=== PATIENT | female | born 1975 ===

== ENCOUNTER 2021-08-04 01:13 | Emergency (ER) | payer BC ==
[2021-08-04] MEDS ORDERED: Sodium Chloride 0.9% 2.5 ML Syringe FLUSH PRN (02:20)
[2021-08-04] MEDS ORDERED: Ketorolac 30 MG/ML SDV IVPUSH ONE (02:20)
[2021-08-04] MEDS ORDERED: Metoclopramide 10 MG/2 ML SDV IVPUSH ONE (02:20)
[2021-08-04] MEDS ORDERED: Sodium Chloride 0.9% 1,000 ML IV ONE (02:20)
[2021-08-04] MEDS ORDERED: Dexamethasone 10 MG/ML SDV IVPUSH ONE (02:20)
[2021-08-04] MEDS ORDERED: Sodium Chloride 0.9% 10 ML Syringe FLUSH PRN (02:20)
[2021-08-04] MEDS ORDERED: diphenhydrAMINE 50 MG/ML SDV IVPUSH ONE (02:20)
[2021-08-04 03:17] LABS: BLOOD UREA NITROGEN,BUN 13 mg/dL (7.0-18.0); CARBON DIOXIDE,CO2 24.1 mmol/L (21.0-32.0); CHLORIDE,CL 97 mmol/L (98-107); GLUCOSE RANDOM 138 mg/dL (74-106); POTASSIUM,K 3.7 mmol/L (3.5-5.1); SODIUM,NA 133 mmol/L (136-145)
== END 2021-08-04 04:46 | disposition home or self-care (01) ==
LOC: MW.ED 01:13
DX: G43.909 Migraine, unspecified, not intractable, without status migrainosus (principal); Z88.1 Allergy status to other antibiotic agents; Z79.899 Other long term (current) drug therapy
CPT/HCPCS: 36415; 70450; 80053; 85025; 96374; 96375; 99284; J1100; J1200; J1885; J2765; J7030; J3490

== ENCOUNTER 2022-02-02 20:21 | Emergency (ER) | payer BC ==
[2022-02-02] MEDS ORDERED: Ketorolac 30 MG/ML SDV IM STA (20:51)
[2022-02-02] MEDS ORDERED: Cephalexin 500 MG Cap PO STA (20:51)
== END 2022-02-02 21:07 | disposition home or self-care (01) ==
LOC: MW.ED 20:21
DX: L03.113 Cellulitis of right upper limb (principal); S50.11XA Contusion of right forearm, initial encounter; Z88.1 Allergy status to other antibiotic agents
CPT/HCPCS: 96372; 99283; A9270; J1885